=== PATIENT | female | born 1955 | race Caucasian/White ===

== ENCOUNTER 2019-02-20 07:39 | Emergency (ER) | payer MEDICARE ==
[~2019-02-20] VITALS: Wt 54.4 kg
[~2019-02-20 07:39] MED LIST: KEFLEX500 MG PO; PREDNISONE20 MG PO; SEROQUEL XR150 MG PO
== END 2019-02-20 08:43 | disposition home or self-care (01) ==
LOC: ED 07:39
DX: H61.21 Impacted cerumen, right ear (principal)